=== PATIENT | male | born 1960 | race Caucasian/White ===

== ENCOUNTER 2019-04-13 16:02 | Inpatient (IN) | payer BC, OTHER ==
[2019-04-13 16:40] LABS: Hemoglobin 14.4 g/dL (14.0-18.0); Mean Corpuscular HGB CONC 34.3 g/dL (32.0-36.0); Mean Corpuscular Hemoglobin 29.2 pg (27.0-31.0); Mean Corpuscular Volume 85.2 fL (78.0-98.0); Platelet Count 275 thou/uL (130-400); Red Blood Cell (RBC) Count 4.94 mill/uL (4.70-6.10); White Blood Cell (WBC) Count 13.8 thou/uL (4.8-10.8)
--- NOTE | 2019-04-13 16:53 | RAD ---
Portable frontal chest radiograph: 04/13/2019 COMPARISON: None HISTORY: Pain, dizziness, near syncope FINDINGS: Lungs are clear. Heart and mediastinal contours appear within normal limits. IMPRESSION: No acute findings.
[2019-04-13 17:00] LABS: ALT (SGPT) 96 U/L (8-55); AST (SGOT) 77 U/L (5-34); Albumin 3.8 g/dL (3.5-5.0); Alkaline Phosphatase 307 U/L (40-110); Anion Gap 16 mmol/L (10-20); BUN (Urea Nitrogen) 15 mg/dL (8.4-25.7); CK (CPK) 41 U/L (30-200); Calc. Creatinine Clearance 0 mL/min (70-130); Calcium 8.8 mg/dL (7.8-10.44); Carbon Dioxide 23 mmol/L (22-29); Chloride 95 mmol/L (98-107); Estimated GFR-MDRD 32; Glucose 142 mg/dL (70-105); Potassium 4.4 mmol/L (3.5-5.1); Protein, Total 6.8 g/dL (6.0-8.3); Sodium 130 mmol/L (136-145)
[2019-04-13 17:04] LABS: Band 12 % (5-11); Lymphocytes 18 % (21-51); MDiff Complete? YES; Monocytes 9 % (0-10); Neutrophil 58 % (42-75); Platelet Morphology Comment Appears Adequate; Reactive Lymphocytes 3 % (0-10)
[2019-04-13 18:11] LABS: Bacteria/HPF 3+ HPF (None Seen); Bilirubin 1+ (Negative); Blood, Urine Negative (Negative); Clarity Turbid (Clear); Glucose, Urine (Dipstick) 50 mg/dL (Negative); Leukocyte Negative Leu/uL (Negative); Nitrite Negative (Negative); Protein, Urine (Dipstick) 300 mg/dL (Neg-Trace); RBC/HPF 0-3 HPF (0-3)
[2019-04-13] MEDS ORDERED: Magnesium 2 GM/50 ML BAG (IN WATER) ONE (18:45)
--- NOTE | 2019-04-13 19:16 | CT ---
CT Brain WO Con: 04/13/2019 5:47 PM CLINICAL HISTORY: Headache. COMPARISON: None. FINDINGS: Hemorrhage: None. Ventricular system: Normal in size and morphology for the patient's age. Cerebral parenchyma: Normal Midline shift: None. Mass: No mass effect. Calvarium: Normal. Visualized Paranasal sinuses: Scattered mild inflammatory mucosal thickening. IMPRESSION: No acute intracranial abnormalities.
[2019-04-13] MEDS ORDERED: cefTRIAXone\\ROCEPHIN 1 GM VIAL ONE (19:25)
--- NOTE | 2019-04-13 19:27 | CT ---
EXAM: Abdomen and pelvic CT scan without contrast: HISTORY: Pain COMPARISON: None FINDINGS: Mild atelectasis/scar at the lung bases Liver: Hepatic steatosis Gallbladder: Prior cholecystectomy Pancreas: Unremarkable Spleen: Unremarkable. Adrenal glands: Unremarkable. Kidneys: Small hyperdense cyst of the superior pole left kidney is present, too small to further renzo acterize. No hydronephrosis or urolithiasis. Bowel: Colonic diverticulosis. No obstruction. Urinary Bladder: Decompressed, and unopacified. Wall prominence may relate to incomplete distention. Enlargement of prostate, 5.7 cm transverse. Adenopathy: No adenopathy within the abdomen or pelvis. Free Air: No free air. Ascites: No ascites. Scattered vascular calcification. Abdominal aorta is nonaneurysmal. Patulous, noninflamed fat-containing left inguinal hernia. Osseous structures: No acute osseous abnormalities. IMPRESSION: No urolithiasis or obstructive uropathy. Small hyperdense cyst of superior pole left kidney. Contracted urinary bladder with bladder wall prominence. Prostatomegaly. Correlate with PSA value. Colonic diverticulosis. Transcribed Date/Time: 04/13/2019 7:40 PM
[2019-04-13] MEDS ORDERED: Clopidogrel Bisulfate 75 MG TAB ONE (19:55)
[2019-04-13] MEDS ORDERED: Nitroglycerin 0.4 MG TAB (25 Tab Bottle) PO PRN (21:41)
--- NOTE | 2019-04-13 21:55 | PDOC.EVN ---
Event Note - Event Note Event Note: [id number] HP
--- NOTE | 2019-04-13 22:34 | HP ---
CHIEF COMPLAINT: Near syncope and chest pain. HISTORY OF PRESENT ILLNESS: Mr. Freeman is a 58-year-old male with past medical history of diabetes mellitus, type 2, hypertension, GERD, hypothyroidism, hyperlipidemia, among others, presented to the emergency room for a near syncopal episode. The patient states that on Friday and Friday, he spent all day in bed. He tried to go to [place], got out of his car, felt hot, flushed and dizzy. Also, he had some chest pain/discomfort. Also, he started feeling pain in his neck. He had a headache, which is not new. The chest pain is described as mildly radiating to the back. He had a temperature/fever of 101. Today, no fever. No urinary symptoms. The patient denies diarrhea or hematuria. Initial workup in the emergency room including imaging studies, no acute finding. Initial troponin negative. The patient had a creatinine of 2.1. Also, he was found to have ?UTI. The patient was given antibiotic in the ED. The patient is being admitted to the hospital for further management. PAST MEDICAL HISTORY: As mentioned above in the history of present illness. PAST SURGICAL HISTORY: 1. Cholecystectomy. 2. Thyroidectomy. PAST PSYCHIATRIC HISTORY: Includes anxiety. SOCIAL HISTORY: Denies alcohol drinking. Denies drug use or smoking. Lives at home with family. ALLERGIES: ALLERGIC TO ASPIRIN, WHICH CAUSES HIVES? FAMILY HISTORY: Reviewed and noncontributory. HOME MEDICATIONS: Please see home medication reconciliation form for updated medications. REVIEW OF SYSTEMS: Review of 14 systems negative except what is mentioned in the history of present illness. PHYSICAL EXAMINATION: GENERAL: The patient is awake, alert, does not appear to be in acute distress. VITAL SIGNS: Blood pressure 126/78, temperature is 100, respiratory rate is 18, pulse oximetry 96%. HEAD: Normocephalic, atraumatic. NECK: Supple. No JVD. CHEST: Fair bilateral air entry. HEART: S1, S2. Regular. ABDOMEN: Soft, nontender. Bowel sounds present. NEUROLOGIC: Awake, alert, oriented x3. PSYCHIATRIC: Normal mood. EXTREMITIES: No clubbing or cyanosis. LABORATORY DATA: WBC count 13.8, sodium is 130, glucose 142, creatinine is 2.1, magnesium is 1.4. Urine is positive for WBCs and bacteria, but there is squamous cell? IMAGING STUDIES: Head CT negative. Chest x-ray negative. EKG shows sinus tachycardia with PACs. Troponin less than 0.01. ASSESSMENT: 1. Acute renal failure. 2. Hypomagnesemia. 3. Hyponatremia. 4. Chest pain. 5. Diabetes mellitus. 6. Hypertension. PLAN: 1. Admit. 2. Telemetry monitoring. 3. Serial cardiac enzymes. 4. 2D echo. 5. Replace electrolytes. 6. IV fluid hydration. 7. Empiric IV antibiotics. 8. Reconcile home medications. 9. Deep venous thrombosis prophylaxis as appropriate. 10. Expected length of stay, 2 midnights or more. Job ID: [id number]
[2019-04-13] MEDS: Sodium Chloride 0.9% 1,000 ML IV SCH (22:45)
[2019-04-13 23:13] LABS: Troponin I Less than 0.010 ng/mL (< 0.028)
[2019-04-13 23:22] VITALS: BMI 40.4
[2019-04-14] MEDS ORDERED: Aspirin 325 mg Enteric Coated Tablet PO SCH (09:00)
[2019-04-14] MEDS ORDERED: FLU VACC QS2019-20(6MOS UP)/PF 60 MCG/0.5 ML SYRINGE IM ONE (09:00)
[2019-04-14] MEDS: Sodium Chloride 0.9% 1,000 ML IV SCH ×2 (12:27→22:38)
[2019-04-14] MEDS ORDERED: FLUoxetine HCl 20 MG CAP PO SCH (12:45)
[2019-04-14] MEDS ORDERED: metFORMIN 500 MG TAB PO SCH (13:15)
[2019-04-14] MEDS ORDERED: Lisinopril 20 MG TAB PO SCH (13:15)
[2019-04-14] MEDS ORDERED: Atorvastatin Calcium 40 MG TAB PO SCH (13:15)
[2019-04-14] MEDS ORDERED: Alogliptin 25 MG TAB PO SCH (13:15)
[2019-04-14 13:22] LABS: ALT (SGPT) 90 U/L (8-55); AST (SGOT) 74 U/L (5-34); Albumin 3.4 g/dL (3.5-5.0); Alkaline Phosphatase 294 U/L (40-110); Anion Gap 15 mmol/L (10-20); BUN (Urea Nitrogen) 9 mg/dL (8.4-25.7); Bilirubin, Total 1.6 mg/dL (0.2-1.2); Calc. Creatinine Clearance 141 mL/min (70-130); Calcium 8.6 mg/dL (7.8-10.44); Carbon Dioxide 22 mmol/L (22-29); Chloride 96 mmol/L (98-107); Estimated GFR-MDRD 75; Globulin 3.3 g/dL (2.4-3.5); Glucose 182 mg/dL (70-105); Protein, Total 6.7 g/dL (6.0-8.3); Sodium 129 mmol/L (136-145)
[2019-04-14 13:36] LABS: Band 7 % (5-11); Hemoglobin 13.7 g/dL (14.0-18.0); Hypochromia MODERATE=16-30 cells (100X) (0-5/hpf); Lymphocytes 33 % (21-51); MDiff Complete? YES; Mean Corpuscular HGB CONC 32.6 g/dL (32.0-36.0); Mean Corpuscular Hemoglobin 28.1 pg (27.0-31.0); Mean Corpuscular Volume 86.2 fL (78.0-98.0); Monocytes 9 % (0-10); Neutrophil 48 % (42-75); Platelet Count 275 thou/uL (130-400); Platelet Morphology Comment Appears Adequate; Polychromasia MODERATE = 3-4 cells (100X) (0-2/hpf); Reactive Lymphocytes 3 % (0-10); Red Blood Cell (RBC) Count 4.89 mill/uL (4.70-6.10); Reflex for Review?? NO; Tear Drops SLIGHT = 2-5 cells (100X) (0-1/hpf); White Blood Cell (WBC) Count 11.5 thou/uL (4.8-10.8)
[2019-04-14] MEDS ORDERED: cefTRIAXone\\ROCEPHIN 1 GM in Sodium Chloride 0.9% 100 ML IVPB SCH (20:00)
--- NOTE | 2019-04-14 22:55 | PDOC.HOSPP ---
- Subjective Subjective: Feels well. Has no complaints. Feeling better in general. - Objective Vital Signs & Weight: Vital Signs (12 hours) Temp Pulse Resp BP Pulse Ox 04/14/19 15:06 98.2 F 97 16 122/75 94 L 04/14/19 11:40 98.5 F 92 16 133/74 94 L Weight Weight 282 lb 3 oz I&O: 04/13/19 04/14/19 04/15/19 06:59 06:59 06:59 Intake Total 2007 Output Total 1275 Balance 733 Result Diagrams: 04/14/19 12:40 04/14/19 12:40 Additional Labs: Accuchecks 04/14/19 04/14/19 04/14/19 20:07 16:57 12:20 POC Glucose 119 H 129 H 187 H 04/14/19 04/13/19 05:39 23:14 POC Glucose 152 H 127 H Hospitalist ROS - Medication Medications: Active Medications Generic Name Dose Route Start Last Admin Trade Name Freq PRN Reason Stop Dose Admin Sodium Chloride 1,000 mls @ 75 mls/hr 04/13/19 22:00 04/14/19 22:38 Normal Saline 0.9% IV 1,000 mls .[id number] ADILSON Administration Ceftriaxone Sodium 1 gm/ 100 mls @ 200 mls/hr 04/14/19 20:00 04/14/19 22:38 Sodium Chloride IVPB 100 mls Q24HR ADILSON Administration - Exam General Appearance: NAD, awake alert General - other findings: Morbidly obese. Heart: RRR, no murmur, no gallops, no rubs, normal peripheral pulses Respiratory: CTAB, no wheezes, no rales, no ronchi, normal chest expansion, no tachypnea, normal percussion Gastrointestinal: soft, non-tender, non-distended, normal bowel sounds, no palpable masses, no hepatomegaly, no splenomegaly, no bruit Skin: normal turgor Psychiatric: normal affect, normal behavior, A&O x 3 Hosp A/P (1) DELFINO (acute kidney injury) Code(s): N17.9 - ACUTE KIDNEY FAILURE, UNSPECIFIED Status: Acute (2) UTI (urinary tract infection) Status: Acute (3) Elevated LFTs Code(s): R94.5 - ABNORMAL RESULTS OF LIVER FUNCTION STUDIES Status: Acute (4) Hyponatremia Code(s): E87.1 - HYPO-OSMOLALITY AND HYPONATREMIA Status: Acute (5) Hypomagnesemia Code(s): E83.42 - HYPOMAGNESEMIA Status: Acute (6) Diabetes mellitus Code(s): E11.9 - TYPE 2 DIABETES MELLITUS WITHOUT COMPLICATIONS Status: Acute (7) HTN (hypertension) Code(s): I10 - ESSENTIAL (PRIMARY) HYPERTENSION Status: Acute - Plan Appears to be doing very well. Ambulated well around the hospital today. Voiding well. Repeat labs, DELFINO resolved. LFT's still elevated. No gall bladder. Likely has HART secondary to obesity and DM. Continue Abx. Follow up urine cx in am. Recheck the sodium level in am.
[2019-04-15 05:25] LABS: ALT (SGPT) 76 U/L (8-55); AST (SGOT) 65 U/L (5-34); Albumin 3.2 g/dL (3.5-5.0); Alkaline Phosphatase 269 U/L (40-110); Anion Gap 13 mmol/L (10-20); BUN (Urea Nitrogen) 7 mg/dL (8.4-25.7); Bilirubin, Total 1.4 mg/dL (0.2-1.2); Calc. Creatinine Clearance 164 mL/min (70-130); Calcium 8.3 mg/dL (7.8-10.44); Carbon Dioxide 23 mmol/L (22-29); Chloride 97 mmol/L (98-107); Estimated GFR-MDRD 89; Globulin 3.1 g/dL (2.4-3.5); Glucose 130 mg/dL (70-105); Potassium 3.9 mmol/L (3.5-5.1); Protein, Total 6.3 g/dL (6.0-8.3); Sodium 129 mmol/L (136-145)
[2019-04-15] MEDS ORDERED: Levothyroxine Sodium 100 MCG TAB PO SCH (06:00)
[2019-04-15] MEDS ORDERED: Alogliptin 25 MG TAB PO SCH (08:00)
[2019-04-15] MEDS ORDERED: metFORMIN 500 MG TAB PO SCH (08:00)
[2019-04-15] MEDS ORDERED: Lisinopril 20 MG TAB PO SCH ×2 (09:00)
[2019-04-15] MEDS ORDERED: FLUoxetine HCl 20 MG CAP PO SCH (09:00)
[2019-04-15] MEDS ORDERED: Atorvastatin Calcium 40 MG TAB PO SCH (09:00)
--- NOTE | 2019-04-15 11:41 | CON ---
DATE OF CONSULTATION: 04/15/2019 CONSULTING PHYSICIAN: Dr. Almonte. REASON FOR CONSULTATION: Hyponatremia. REASON FOR ADMISSION: Near syncope. HISTORY OF PRESENT ILLNESS: A 58-year-old male with history of type 2 diabetes, hypertension, gout, came to the hospital with above complaints and was in renal failure and had hydration, creatinine got better, but sodium remains low. Nephrology consulted. The patient is feeling he wants to go home. He probably getting discharged today. No nausea or vomiting. No chest pain or palpitation. No fever or chills. The patient denies any history of hyponatremia in the past. PAST MEDICAL HISTORY: Positive for GERD, type 2 diabetes, hypertension, hypothyroidism, and hyperlipidemia. PAST SURGICAL HISTORY: Cholecystectomy and thyroidectomy. HOME MEDICATIONS: 1. Protonix. 2. Fluoxetine. 3. Lisinopril. 4. Synthroid. 5. Lipitor. 6. Janumet. 7. Levemir. ALLERGIES: ASPIRIN. SOCIAL HISTORY: No smoking, alcohol, or illicit drugs. FAMILY HISTORY: No history of kidney disease. REVIEW OF SYSTEMS: CONSTITUTIONAL: Negative for weight loss or gain, ability to conduct usual activities. SKIN: Negative for rash, itching. EYES: Negative for double vision, pain. ENT/MOUTH: Negative for nose bleeding, neck stiffness, pain, tenderness. CARDIOVASCULAR: Negative for palpitations, dyspnea on exertion, orthopnea. RESPIRATORY: Negative for shortness of breath, wheezing, cough, hemoptysis, fever or night sweats. GASTROINTESTINAL: Negative for poor appetite, abdominal pain, heartburn, nausea, vomiting, constipation, or diarrhea. GENITOURINARY: Negative for urgency, frequency, dysuria, nocturia. MUSCULOSKELETAL: Negative for pain, swelling. NEUROLOGIC/PSYCHIATRIC: Negative for anxiety, depression. ALLERGY/IMMUNOLOGIC: Negative for skin rash, bleeding tendency. PHYSICAL EXAMINATION: GENERAL: This is an obese male, in no apparent distress. VITAL SIGNS: Temperature 97.8, pulse 85, respiratory rate 20, and blood pressure 110/64. HEENT: Atraumatic and normocephalic. Oral mucosa moist. NECK: Supple. CV: S1 and S2 RESPIRATORY: Clear. GASTROINTESTINAL: Abdomen is soft. MUSCULOSKELETAL: 1+ edema. DERMATOLOGIC: No skin rash. NEUROLOGIC: Alert and awake. PSYCHIATRIC: Mood and affect normal. LABORATORY DATA: Sodium is 129, potassium is 3.9, BUN is 7, and creatinine is 0.9. ASSESSMENT AND PLAN: 1. Hyponatremia, most likely from poor p.o. intake and possibly from fluoxetine, so I advised him to follow with his PCP to consider alternative for fluoxetine and also to increase electrolyte intake for now and limit fluid intake. 2. Edema, controlled. 3. History of hypertension. 4. Morbid obesity. 5. , better. 6. Hypoalbuminemia. I advised him to encourage protein intake and consider stopping fluoxetine. Advised to follow up with the clinic in 1 to 2 weeks if he is going home. Thank you for the consult. Job ID: [id number]
[2019-04-15 13:04] VITALS: BP 119/67; TEMP 98.9
[2019-04-15] MEDS: Sodium Chloride 0.9% 1,000 ML IV SCH (16:00)
--- NOTE | 2019-04-17 14:01 | EKG ---
Test Reason : Blood Pressure : / mmHG Vent. Rate : 101 BPM Atrial Rate : 101 BPM P-R Int : 148 ms QRS Dur : 082 ms QT Int : 354 ms P-R-T Axes : 046 015 018 degrees QTc Int : 459 ms Sinus tachycardia with Premature atrial complexes Otherwise normal ECG Confirmed by JACKSON Buchanan, MARÍA ([id number]), metropolitan editor SOFÍA ORTIZ ([id number]) on 04/17/2019 2:00:36 PM Referred By: Confirmed By:MARÍA PAZ M.D.
== END 2019-04-15 15:59 | disposition home or self-care (01) | DRG 683 ==
LOC: ERS 16:02 → 2NO 19:43
PROVIDERS: ADMIT Internal Medicine; ATTEND Internal Medicine
DX: N17.9 Acute kidney failure, unspecified (principal); E87.1 Hypo-osmolality and hyponatremia; Z68.41 Body mass index [BMI] 40.0-44.9, adult; N39.0 Urinary tract infection, site not specified; E11.9 Type 2 diabetes mellitus without complications; I10 Essential (primary) hypertension; K21.9 Gastro-esophageal reflux disease without esophagitis; E03.9 Hypothyroidism, unspecified; E78.5 Hyperlipidemia, unspecified; F41.9 Anxiety disorder, unspecified; E83.42 Hypomagnesemia; R94.5 Abnormal results of liver function studies; M10.9 Gout, unspecified; E66.01 Morbid (severe) obesity due to excess calories; Z90.89 Acquired absence of other organs; Z90.49 Acquired absence of other specified parts of digestive tract
CPT/HCPCS: 36415; 36416; 70450; 71045; 74176; 80053; 81003; 81015; 82550; 83690; 83735; 83880; 84484; 85025; 87040; 87086; 93005; 93306; 96361; 96365; 96367; J0696; J3475; J3490

== ENCOUNTER 2019-08-04 08:28 | Outpatient (CLI) | payer OTHER ==
--- NOTE | 2019-08-04 08:39 | RAD ---
Left shoulder 3 views HISTORY: Left shoulder pain. FINDINGS: Acromioclavicular and glenohumeral alignment are maintained. Mild to moderate osteophytosis . 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 No acute fracture, dislocation, or aggressive osseous erosions are apparent. IMPRESSION: Mild osteoarthritic changes left shoulder.
== END 2019-08-04 08:29 | disposition home or self-care (01) ==
LOC: RAD-FRANK 08:28
PROVIDERS: ATTEND Nurse Practitioner Family
DX: M25.512 Pain in left shoulder (principal); M19.012 Primary osteoarthritis, left shoulder

== ENCOUNTER 2020-04-18 12:50 | Outpatient (CLI) | payer OTHER | END 2020-04-18 12:51 | disposition home or self-care (01) | LOC: DTY/OP 12:50 | PROVIDERS: ATTEND Nurse Practitioner Family | DX: E11.65 Type 2 diabetes mellitus with hyperglycemia (principal); I10 Essential (primary) hypertension | CPT/HCPCS: 97802 ==